=== PATIENT | female | born 1950 | race Caucasian/White ===

== ENCOUNTER 2024-07-07 07:50 | Emergency (ER) | payer MEDICARE, OTHER, SELFPAY ==
[2024-07-07 07:55] VITALS: BP 178/98
[2024-07-07 08:15] VITALS: BP 160/85
--- NOTE | 2024-07-07 08:36 | ED.GENMED ---
History of Present Illness
<ANGELITA Negro - Last Filed: 07/07/24 14:50>
General
Chief Complaint: Chest Pain
Source: patient
Exam Limitations: none
Time Seen by Provider: 07/07/24 08:02
Nursing documentation reviewed up to this point in time: agreed with
History of Present Illness
History of Present Illness:
Patient is a 73-year-old female with past medical history of breast cancer in 2015 with chemotherapy radiation and right mastectomy. Presents to the ER for evaluation of chest pain. Patient reports she woke up at 5:30 AM because of her dog but
then noticed she had pain in the center of her chest and has been there ever since. She does upper back pain. She does feel worse when she sits up. She denies any actual injury. She denies any recent cough cold fever chills. She has been having
some reflux lately but this does not feel like reflux. She denies any shortness of breath.
Past History
<ANGELITA Negro - Last Filed: 07/07/24 14:50>
Past History
ED Past Medical History: Cancer (Breast cancer and skin cancer) and Hypothyroidism
ED Past Surgical History: Gynecological, Orthopedic, Urological and Other
Social History
Tobacco: Non-smoker
Alcohol: None
Drug: None
Personal:
Living: with family
Employment: Employed
Family History
Family History: Hypertension
Review of Systems
<ANGELITA Negro - Last Filed: 07/07/24 14:50>
Review of Systems
Allergies reviewed?: Yes
All Other Systems: ROS reviewed and negative except as documented in HPI and ROS
Constitutional: Reports no symptoms; Denies fever, fatigue or chills
Respiratory: Denies trouble breathing
Cardiac: Reports chest pain; Denies diaphoresis, palpitations or syncope
ABD/GI: Reports no symptoms
: Reports no symptoms
Musculoskeletal: Reports back pain
Skin: Reports no symptoms
Neurological: Reports no symptoms
Psychiatric: Reports no symptoms
Phy Exam
<ANGELITA Negro - Last Filed: 07/07/24 14:50>
General Physical Exam
General Presentation: no apparent distress
General age: appears stated age
General Skin: warm and dry
General Habitus: elderly
General Mental: alert
General Hydration: appears well hydrated
Cardiovascular Exam
Cardiovascular Exam: regular rate/rhythm, no murmur and normal peripheral pulses
Pulmonary Exam
Pulmonary Exam: lungs clear and chest non tender
Neurological Exam
Neurological Exam: alert and oriented x3
Musculoskeletal Exam
Musculoskeletal Exam: full ROM
Skin Exam
Skin Exam: normal color and warm/dry
Psychiatric Exam
Psychiatric Exam: normal mood/affect
Scores
<ANGELITA Negro - Last Filed: 07/07/24 14:50>
Heart Score for Chest Pain Patients
STEMI patient?: Not applicable
Course
<ANGELITA Negro - Last Filed: 07/07/24 14:50>
Orders/Labs/Results
Orders:
Orders
07/07/24 07:58
Electrocardiogram (*1) Urgent
Reason for Study: Chest Pain
EKG- Treatment ONCE
07/07/24 08:29
CT Chest Pe Study Urgent
Comment:
Reason For Exam: cp radiating to back
Cardiac Monitoring- Treatment ONCE
IV Insert/Care/Rem.- Treatment PRN
07/07/24 08:33
Complete Blood Count/With Diff Urgent
07/07/24 09:21
Comprehensive Metabolic Panel Urgent
Troponin I Urgent
07/07/24 09:43
Ketorolac [Toradol] 15 mg IV NOW STA
07/07/24 11:01
Acetaminophen [Tylenol] 1,000 mg PO NOW STA
07/07/24 12:31
Troponin I Urgent
Abnormal Lab Results
07/07/24
09:21
Chloride 108 H mmol/L
(98-107)
BUN 26 H mg/dl
(7-17)
Glucose 110 H mg/dl
(70-99)
ALT 45 H U/L
(0-35)
07/07/24 08:33
07/07/24 09:21
Vital Signs
Initial and Last Documented VS:
Initial Vital Signs
Temp Pulse Resp BP Pulse Ox
97.8 F 77 18 178/98 98
07/07/24 07:55 07/07/24 07:55 07/07/24 07:55 07/07/24 07:55 07/07/24 07:55
Last Documented Vital Signs
Temp Pulse Resp BP Pulse Ox
97.8 F 77 16 156/78 98
07/07/24 07:55 07/07/24 13:10 07/07/24 13:10 07/07/24 13:28 07/07/24 13:10
Gospel Worker consulted with Physician
Gospel Worker consulted with physician?: Yes
Name of Physician Consulted: Juan
<Kash Martinez MD - Last Filed: 07/07/24 09:14>
Orders/Labs/Results
Orders:
Orders
07/07/24 07:58
Electrocardiogram (*1) Urgent
Reason for Study: Chest Pain
EKG- Treatment ONCE
07/07/24 08:29
CT Chest Pe Study Urgent
Comment:
Reason For Exam: cp radiating to back
Cardiac Monitoring- Treatment ONCE
IV Insert/Care/Rem.- Treatment PRN
07/07/24 08:33
Complete Blood Count/With Diff Urgent
07/07/24 09:21
Comprehensive Metabolic Panel Urgent
Troponin I Urgent
07/07/24 09:43
Ketorolac [Toradol] 15 mg IV NOW STA
07/07/24 11:01
Acetaminophen [Tylenol] 1,000 mg PO NOW STA
07/07/24 12:31
Troponin I Urgent
Abnormal Lab Results
07/07/24
09:21
Chloride 108 H mmol/L
(98-107)
BUN 26 H mg/dl
(7-17)
Glucose 110 H mg/dl
(70-99)
ALT 45 H U/L
(0-35)
07/07/24 08:33
07/07/24 09:21
Vital Signs
Initial and Last Documented VS:
Initial Vital Signs
Temp Pulse Resp BP Pulse Ox
97.8 F 77 18 178/98 98
07/07/24 07:55 07/07/24 07:55 07/07/24 07:55 07/07/24 07:55 07/07/24 07:55
Last Documented Vital Signs
Temp Pulse Resp BP Pulse Ox
97.8 F 77 16 156/78 98
07/07/24 07:55 07/07/24 13:10 07/07/24 13:10 07/07/24 13:28 07/07/24 13:10
<ANGELITA Negro - Last Filed: 07/07/24 14:50>
MDM/Problems Addressed
Differential Diagnosis Includes:
Not limited to musculoskeletal chest pain, ACS, less likely PE ,dissection musculoskeletal pain, reflux
MDM/Problems Addressed:
Patient is a 73-year-old female with history of breast cancer presents to the ER for evaluation of chest pain. Patient was already awake when she noticed midsternal chest pain and upper back pain. She denies any shortness of breath. She presents
awake alert no acute distress she denies any injury. Patient reports pain is worse with sitting up. Denies any recent fever chills illness. Lungs are clear she is nontachycardic nontachypneic nonhypoxic in no acute distress however with history
of breast cancer will order CTA to rule out PE, dissection. EKG normal sinus rhythm no acute findings. Patient eval by ED physician agrees with assessment plan.
Patient with [address] chest negative for PE/Dissection
On reexam patient is pain-free nontachycardic not hypoxic no acute distress will DC with outpatient follow-up by pcp and cardiology.
<ANGELITA Negro - Last Filed: 07/07/24 14:50>
*Radiology
Radiology exam reviewed: radiology read reviewed
*Pulse Oximetry
Patient hypoxic: no
*EKG
Interpreted by ED Provider?: Yes
Heart Rate: 74
Rate: normal
Rhythm: sinus
Ischemia: no ischemia
*Critical Care Note
Total Time (30-74mins, 75-104mins- exclusive of procedures): Not Applicable
ED Attending Note
<ANGELITA Negro - Last Filed: 07/07/24 14:50>
-
Portions of this chart may have been created with voice recognition software.� Occasional wrong word or��sound alike� substitutions may have occurred due to the inherent limitations of voice recognition software.
<Kash Martinez MD - Last Filed: 07/07/24 09:14>
ED Attending Note
Patient seen and examined by attending physician: Yes
I performed the substantive portion of visit, reviewed & personally made and approve the management plan that is documented in note by myself or MANSOOR.: Yes
ED Attending Note:
73-year-old female woke about 530 with vague mid to upper midsternal chest discomfort with some radiation to the upper back. Mildly worse with deep breathing. Also notes worse with sitting up. No shortness of breath nausea diaphoresis no
abdominal pain. No history of same. Past history of breast cancer. No cardiac history.
On exam patient is nontoxic in no distress. Warm and dry. Perfusing well. Lungs clear and equal. No CVA tenderness. No spinal tenderness. Heart regular rate and rhythm no murmur. Abdomen nontender. No liver or spleen palpable. No rebound or
guarding no mass or hernia. Remedies warm and dry. No cord or swelling.
Impression is mildly pleuritic mildly musculoskeletal like midsternal chest pain but does radiate to the back. Differential would include cardiac. Unlikely but EKG and troponins will be done x 2. Dissection and pulmonary emboli. She does have
remote history of pulmonary emboli. Feel CT scan is warranted. If all serious etiologies have been ruled out would consider musculoskeletal, reflux. Doubt gallbladder. She has no right upper quadrant tenderness. No abdominal tenderness.
Discharge Plan
Departure
Patient Disposition: Home (Routine Discharge)
Date of Disposition: 07/07/24
Time of Disposition: 13:37
Patient with high blood pressure during this ER visit?: Yes
Condition: Fair
Covid-19: Not Applicable
Discharge Problem:
Chest pain
Instructions: Chest Pain CBC Follow Up
Prescriptions:
No Action
levothyroxine 25 MCG tablet
25 mcg PO DAILY
letrozole 2.5 MG tablet
2.5 mg PO DAILY
Arthritis Pill
1 tab PO BID
Patient Comments:
pt does not know the name of medication
Turmeric
1 tab PO DAILY
oxycodone-acetaminophen [Percocet] 5-325 mg Tablet
1 tab PO Q6HPRN PRN (Reason: pain) Qty: 14 0RF
diclofenac potassium 50 mg tablet
50 mg PO BID PRN (Reason: pain) Qty: 14 0RF
amoxicillin-pot clavulanate 875-125 mg tablet
1 tab PO BID Qty: 14 0RF
albuterol sulfate 90 mcg/actuation HFA aerosol inhaler
2 inh inhalation Q8H PRN (Reason: shortness of breath or wheezing) Qty: 8.5 0RF
Referrals:
Barry Richey MD (Ellie) [Active] -
Yaakov Savage MD [Active] -
Activity Restrictions/Additional Instructions:
As discussed follow-up with your family doctor as well as cardiology in the next several days please give them a call to schedule an appointment return if any worsening of symptoms.
Your cardiac blood work and other labs were negative your CAT scan was negative. There were no concerning findings on your EKG.
Interventions
Interventions:
*Risk Screen - Suicide Last Done: 07/07/24 07:55
*General Assessment Last Done: 07/07/24 07:55
*Neglect/Abuse Screening Last Done: 07/07/24 07:55
ED- Fall Risk Assessment Last Done: 07/07/24 09:03
*ED COVID-19 Vaccine History Last Done: 07/07/24 08:46
*Nursing Disposition Last Done: 07/07/24 13:47
ED- Cardiac Assessment Last Done: 07/07/24 09:03
Discharge Date and Time
Discharge Date/Time: 07/07/24 13:47
Print Language: KHMER
[2024-07-07 08:46] VITALS: BP 160/85; BMI 30.2
[2024-07-07 08:58] LABS: % Basophils 0.9 % (0-2); % Eosinophils 2.2 % (0-6); % Immature Granulocytes 0.5 % (0-0.5); % Lymphocytes 26.9 % (20.5-51.1); % Monocytes 6.7 % (1.7-9.3); % Neutrophils 62.8 % (42.2-75.2); Absolute Basophils 0.1 10^3/uL (0-0.2); Absolute Eosinophils 0.1 10^3/uL (0-0.7); Absolute Lymphocytes 1.7 10^3/uL (1.2-3.4); Absolute Monocytes 0.4 10^3/uL (0.1-0.6); Hematocrit 41.8 % (37.0-47.0); Hemoglobin 14.3 g/dL (12.0-16.0); Mean Corp Hgb Conc. 34.2 g/dL (33.0-37.0); Mean Corpuscular Hgb 29.1 pg (27.0-31.0); Mean Platelet Volume 9.5 fL (7.4-10.4); Nucleated Red Blood Cells % 0 %; Platelet Count 315 10^3/uL (130-400); Red Blood Cell Count 4.92 10^6/uL (4.20-5.40); Red Cell Dist. Width 13.7 % (11.5-14.5); White Blood Cell Count 6.4 10^3/uL (4.8-10.8)
[2024-07-07 09:46] LABS: ALT (SGPT) 45 U/L (0-35); AST (SGOT) 33 U/L (14-36); Albumin 4.4 g/dl (3.5-5.0); Alkaline Phosphatase 88 U/L (38-126); Blood Urea Nitrogen 26 mg/dl (7-17); Calcium 10.2 mg/dl (8.4-10.2); Carbon Dioxide 24 mmol/L (22-30); Chloride 108 mmol/L (98-107); Estimated Creatinine Clearance 56 ml/min; Glucose 110 mg/dl (70-99); Potassium 4.6 mmol/L (3.5-5.1); Sodium 142 mmol/L (135-145); Total Bilirubin 0.5 mg/dl (0.2-1.3); Total Protein 6.7 g/dl (6.3-8.2); eGFR > 60.00
[2024-07-07 09:56] LABS: Troponin I < 0.012 ng/ml
[2024-07-07] MEDS: TORADOL 15 MG IV (10:19)
[2024-07-07 11:00] VITALS: BP 179/93
[2024-07-07] MEDS: TYLENOL 1000 MG PO (11:20)
[2024-07-07 12:00] VITALS: BP 183/82
[2024-07-07 13:07] LABS: Troponin I < 0.012 ng/ml
[2024-07-07 13:28] VITALS: BP 156/78
== END 2024-07-07 13:47 | disposition home or self-care (01) ==
LOC: EMR 07:50
PROVIDERS: Nurse Practitioner; EMERGENCY PHYSICIAN Emergency Medicine; FAMILY PHYSICIAN Family Medicine
DX: R07.89 Other chest pain (principal); M54.6 Pain in thoracic spine; K21.9 Gastro-esophageal reflux disease without esophagitis; E03.9 Hypothyroidism, unspecified; Z85.3 Personal history of malignant neoplasm of breast; Z86.711 Personal history of pulmonary embolism; Z92.3 Personal history of irradiation; Z92.21 Personal history of antineoplastic chemotherapy; Z85.828 Personal history of other malignant neoplasm of skin; Z90.11 Acquired absence of right breast and nipple; Z88.1 Allergy status to other antibiotic agents; Z88.5 Allergy status to narcotic agent; Z88.8 Allergy status to other drugs, medicaments and biological substances; Z91.048 Other nonmedicinal substance allergy status
CPT/HCPCS: 99285; 96374; 71275; 80053; 84484; 85025; 93005; Q9967

== ENCOUNTER → 2024-08-15 08:18 | Outpatient (REF) | payer MEDICARE, OTHER, SELFPAY | LOC: WDC 08:18 | PROVIDERS: ATTENDING PHYSICIAN Internal Medicine Hematology & Oncology; FAMILY PHYSICIAN Family Medicine | DX: Z12.31 Encounter for screening mammogram for malignant neoplasm of breast (principal) | CPT/HCPCS: 77063; 77067 ==

== ENCOUNTER → 2024-08-16 07:21 | Outpatient (REF) | payer MEDICARE, OTHER, SELFPAY | LOC: RAD 07:21 | PROVIDERS: ATTENDING PHYSICIAN Internal Medicine Gastroenterology; FAMILY PHYSICIAN Family Medicine | DX: R11.0 Nausea (principal) | CPT/HCPCS: 76700 ==

== ENCOUNTER 2025-01-03 17:00 | Emergency (ER) | payer SELFPAY ==
[2025-01-03 17:07] VITALS: BP 142/101
[2025-01-03 19:00] VITALS: BP 178/87
[2025-01-03 19:02] VITALS: BMI 31.3
[2025-01-03] MEDS: TYLENOL 1000 MG PO (20:04)
[2025-01-03 20:49] LABS: % Basophils 0.8 % (0-2); % Eosinophils 1.5 % (0-6); % Immature Granulocytes 0.5 % (0-0.5); % Lymphocytes 20.1 % (20.5-51.1); % Neutrophils 71.1 % (42.2-75.2); Absolute Basophils 0.1 10^3/uL (0-0.2); Absolute Eosinophils 0.2 10^3/uL (0-0.7); Absolute Immature Granulocytes 0.1 10^3/uL (0-0.05); Absolute Lymphocytes 2.4 10^3/uL (1.2-3.4); Absolute Monocytes 0.7 10^3/uL (0.1-0.6); Absolute Neutrophils 8.5 10^3/uL (1.4-6.5); Hematocrit 41.3 % (37.0-47.0); Hemoglobin 13.8 g/dL (12.0-16.0); Mean Corp Hgb Conc. 33.4 g/dL (33.0-37.0); Mean Corpuscular Hgb 29.1 pg (27.0-31.0); Mean Corpuscular Volume 87.1 fL (81.0-99.0); Nucleated Red Blood Cells % 0 %; Platelet Count 321 10^3/uL (130-400); Red Blood Cell Count 4.74 10^6/uL (4.20-5.40); White Blood Cell Count 11.9 10^3/uL (4.8-10.8)
[2025-01-03 21:05] LABS: ALT (SGPT) 34 U/L (0-35); AST (SGOT) 24 U/L (14-36); Alkaline Phosphatase 69 U/L (38-126); Blood Urea Nitrogen 21 mg/dl (7-17); Calcium 9.7 mg/dl (8.4-10.2); Carbon Dioxide 23 mmol/L (22-30); Chloride 109 mmol/L (98-107); Estimated Creatinine Clearance 63 ml/min; Glucose 98 mg/dl (70-99); Potassium 4.3 mmol/L (3.5-5.1); Sodium 140 mmol/L (135-145); Total Bilirubin 1.1 mg/dl (0.2-1.3); Total Protein 6.4 g/dl (6.3-8.2); eGFR > 60.00
[2025-01-03 21:44] VITALS: BP 158/82
[2025-01-03 21:46] VITALS: BP 158/82
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
[2025-01-03] MEDS: VALIUM 5 MG PO (22:17)
== END 2025-01-03 22:21 | disposition home or self-care (01) ==
LOC: EMR 17:00
PROVIDERS: EMERGENCY PHYSICIAN Emergency Medicine; FAMILY PHYSICIAN Family Medicine
DX: S16.1XXA Strain of muscle, fascia and tendon at neck level, initial encounter (principal); S30.1XXA Contusion of abdominal wall, initial encounter; S20.219A Contusion of unspecified front wall of thorax, initial encounter; V89.2XXA Person injured in unspecified motor-vehicle accident, traffic, initial encounter; Y92.410 Unspecified street and highway as the place of occurrence of the external cause; E03.9 Hypothyroidism, unspecified; Z82.49 Family history of ischemic heart disease and other diseases of the circulatory system; Z85.3 Personal history of malignant neoplasm of breast; Z85.828 Personal history of other malignant neoplasm of skin
CPT/HCPCS: 99284; 70450; 71046; 72125; 74177; 80053; 85025; 93005; Q9967

== ENCOUNTER → 2025-08-19 08:35 | Outpatient (REF) | payer MEDICARE, OTHER, SELFPAY | LOC: WDC 08:35 | PROVIDERS: ATTENDING PHYSICIAN Family Medicine | DX: Z12.31 Encounter for screening mammogram for malignant neoplasm of breast (principal); Z85.3 Personal history of malignant neoplasm of breast; C50.111 Malignant neoplasm of central portion of right female breast; E78.2 Mixed hyperlipidemia; M25.551 Pain in right hip; M25.552 Pain in left hip | CPT/HCPCS: 73523; 77063; 77067 ==

== ENCOUNTER 2025-08-30 04:04 | Emergency (ER) | payer MEDICARE, OTHER, SELFPAY ==
[2025-08-30] VITALS (7 sets, daily range): BP systolic 132–180; BP diastolic 70–104
[2025-08-30 04:46] LABS: Hematocrit 43.4 % (37.0-47.0); Hemoglobin 14.3 g/dL (12.0-16.0); Mean Corp Hgb Conc. 32.9 g/dL (33.0-37.0); Mean Corpuscular Volume 86.8 fL (81.0-99.0); Nucleated Red Blood Cells % 0 %; Platelet Count 290 10^3/uL (130-400); Red Cell Dist. Width 13.5 % (11.5-14.5)
[2025-08-30] MEDS: ZOFRAN 4 MG IV ×2 (04:55→06:22)
[2025-08-30] MEDS: MORPHINE SULFATE 4 MG IV ×3 (04:56→09:35)
[2025-08-30 05:24] LABS: Blood Urea Nitrogen 26 mg/dl (7-17); Calcium 9.5 mg/dl (8.4-10.2); Carbon Dioxide 20 mmol/L (22-30); Chloride 109 mmol/L (98-107); Glucose 137 mg/dl (70-99); Lipase 96 U/L (23-300); Sodium 138 mmol/L (135-145); eGFR 53.06
--- NOTE | 2025-08-30 06:09 | ED.GENMED ---
History of Present Illness
General
Chief Complaint: Abdominal Pain
Source: patient
Time Seen by Provider: 08/30/25 06:00
History of Present Illness
History of Present Illness:
This patient is a 74-year-old female presents emergency department complaints of pain that woke her up. She was feeling perfectly well and she went to bed and awoke at 3 AM, plaints of discomfort in the right upper quadrant radiating around to the
right back. She applied a heating pad and felt like she just could not get comfortable. She noted nausea without vomiting. She denies chest pain, dyspnea, fever, chills, lower abdominal pain, urinary symptoms, or other complaints.
Past History
Past History
ED Past Medical History: Cancer (Breast cancer and skin cancer) and Hypothyroidism
ED Past Surgical History: Gynecological, Orthopedic and Urological
Social History
Tobacco: Non-smoker
Alcohol: None
Drug: None
Personal:
Living: with family
Employment: Employed
Family History
Family History: Hypertension
Phy Exam
Physical Exam
Physical Exam:
GENERAL: Alert , in no apparent distress
EYE: pupils equal and reactive
NECK: Supple, no significant adenopathy.
ENT: o/p clr, mmm.
CARDIAC: Regular rate and rhythm .(R breast absent)
LUNGS: Clear breath sounds bilaterally, no acute respiratory distress, no wheezes/rales/rhonchi
ABDOMEN: Soft, mild ruq tenderness, no r/g, no cvat
NEUROLOGICAL: Alert and oriented, no focal neuro deficits
SKIN: Warm and dry, skin intact.
MUSCULOSKELETAL: No edema, well perfused.
PSYCH: Normal and appropriate interaction.
Course
Orders/Labs/Results
Orders:
Orders
08/30/25 04:26
US Abdomen Complete/Upper Urgent
Comment:
Reason For Exam: ruq pain, known gallstones
08/30/25 04:35
Basic Metabolic Panel Urgent
Comment: NO K
Complete Blood Count/With Diff Urgent
Lipase Urgent
08/30/25 04:52
Morphine Sulfate 4 mg .ROUTE .STK-MED ONE
Ondansetron Injectable [Zofran] 4 mg .ROUTE .STK-MED ONE
08/30/25 04:53
Ondansetron Injectable [Zofran] 4 mg IV NOW STA
08/30/25 04:56
Morphine Sulfate 4 mg IV NOW STA
08/30/25 06:00
Add On- LAB Urgent
Tests Added?: lft
08/30/25 06:08
Morphine Sulfate 4 mg IV NOW STA
Ondansetron Injectable [Zofran] 4 mg IV NOW STA
08/30/25 06:09
Electrocardiogram (*1) Urgent
Reason for Study: Abdominal Pain
EKG- Treatment ONCE
08/30/25 06:11
Iiptr-Lztm-Isdmxob Urgent
Potassium Urgent
08/30/25 09:00
Ketorolac [Toradol] 15 mg IV NOW STA
08/30/25 09:21
Urinalysis Reflex To Culture Urgent
Date Specimen was Collected: 08/30/25
Time Specimen was Collected: 09:14
Urine Microscopic Reflex Cult Urgent
Urine Culture Urgent
LAURA Source: U
Specimen Description:
Date Specimen was Collected: 08/30/25
Time Specimen was Collected: 09:14
08/30/25 09:24
Morphine Sulfate 4 mg IV NOW STA
Abnormal Lab Results
08/30/25 08/30/25
04:35 09:21
MCHC 32.9 L g/dL
(33.0-37.0)
Abs Immat Gran (auto) 0.1 H 10^3/uL
(0-0.05)
Immature Gran % 0.6 H %
(0-0.5)
Chloride 109 H mmol/L
(98-107)
Carbon Dioxide 20 L mmol/L
(22-30)
BUN 26 H mg/dl
(7-17)
Creatinine 1.1 H mg/dL
(0.6-1.0)
Glucose 137 H mg/dl
(70-99)
Leukocyte Esterase Rfl 2+ A
(Negative)
Urine RBC 3-6 A /HPF
(0-2)
Urine WBC (Reflex) 11-15 A /HPF
(0-5)
Urine Bacteria (Reflex) Moderate A
(Negative)
Urine Albumin (Reflex) 1+ A
(Neg - Trace)
08/30/25 04:35
08/30/25 06:11
Vital Signs
Initial and Last Documented VS:
Initial Vital Signs
Temp Pulse Resp BP Pulse Ox
97.8 F 73 26 180/104 99
08/30/25 04:10 08/30/25 04:10 08/30/25 04:10 08/30/25 04:10 08/30/25 04:10
Last Documented Vital Signs
Temp Pulse Resp BP Pulse Ox
97.8 F 66 14 157/88 99
08/30/25 04:10 08/30/25 09:36 08/30/25 09:36 08/30/25 09:36 08/30/25 06:11
*Pulse Oximetry
SaO2: 99
Oxygen Mode of Delivery: Room air
Update Note
Update Note:
Patient presents to the Emergency Department with Abdominal pain
Number and Complexity of Problems Addressed at the Encounter
� Chronic conditions affecting care:
� Acute Exacerbation and/or Progression of Chronic Illness:
� Differential Diagnosis includes:But not limited to cholelithiasis, cholecystitis, pyelonephritis, ACS, pancreatitis, etc. etc.
Amount and/or Complexity of Data to be Reviewed and Analyzed
� I performed an independent evaluation of and my interpretation is:
EKG:read by me, nsr, nl rate, no ischemia
CT:
Xrays:
Laboratory Studies: Generally unremarkable, mild renal insufficiency noted
Other: Vision report ultrasound cholelithiasis, no gallbladder wall thickening or pericholecystic fluid negative sonographic Tucker sign echogenic fatty liver normal 4.6 mm CBD incidental extrarenal pelvis left kidney and/or
mild central renal pelviectasis correlate with urinalysis as a precaution right kidney normal normal size spleen 10 cm� Final report Dr. Mary no acute intra-abdominal process identified, cholelithiasis. No sonographic findings highly suggestive
of acute cholecystitis. Increased hepatic echogenicity most likely representing moderate fatty infiltration. Bilateral renal cyst without cyst's.
� Review of other/old records reveals:
� Clinical information was obtained by an independent historian:
� Prescriptions/Medications Considered but not given:
� Further testing considered but not performed:
Risk of Complications and/or Morbidity or Mortality of Patient Management
� Social determinants of health affecting care:
� Discussion with other providers (PCP, Hospitalists, Consultants, etc):
� Escalation of care including admission/observation vs risk of discharge considered:1057AM Multiple reassessments, no new sxs, pain improving but not fully gone. D/w pt options to continue pain management/observation here, she
prefers to go home and if pain escalates/persists, fever, etc, will come back. at bedside and also expresses understanding. I did d/w dr Hamm, who agrees with just pain management given only 7 hrs since started and no signs to suggest infx.
Highly doubt other acute intraabd process such as appy, etc...pain very typical for stones, ttp RUQ, etc. Pt overall well appaering.
ED Attending Note
-
Portions of this chart may have been created with voice recognition software.� Occasional wrong word or��sound alike� substitutions may have occurred due to the inherent limitations of voice recognition software.
Discharge Plan
Departure
Patient Disposition: Home (Routine Discharge)
Date of Disposition: 08/30/25
Time of Disposition: 10:59
Patient with high blood pressure during this ER visit?: Yes
Discharge Problem:
Cholelithiasis
Instructions: BLOOD PRESSURE, Gallstones
Prescriptions:
No Action
levothyroxine 25 MCG tablet
25 mcg PO DAILY
letrozole 2.5 MG tablet
2.5 mg PO DAILY
Arthritis Pill
1 tab PO BID
Patient Comments:
pt does not know the name of medication
Turmeric
1 tab PO DAILY
oxycodone-acetaminophen [Percocet] 5-325 mg Tablet
1 tab PO Q6HPRN PRN (Reason: pain) Qty: 14 0RF
diclofenac potassium 50 mg tablet
50 mg PO BID PRN (Reason: pain) Qty: 14 0RF
amoxicillin-pot clavulanate 875-125 mg tablet
1 tab PO BID Qty: 14 0RF
albuterol sulfate 90 mcg/actuation HFA aerosol inhaler
2 inh inhalation Q8H PRN (Reason: shortness of breath or wheezing) Qty: 8.5 0RF
diazepam [Valium] 5 mg tablet
5 mg PO BID-TID PRN (Reason: muscle spasm) Qty: 12 0RF
Referrals:
Kash Thornotn MD [Family Provider, Family Practice]
Dillon Hamm MD [Active, Surgical] - Next open appointment
Activity Restrictions/Additional Instructions:
IF YOU DEVELOP PERSISTENT/NEW/WORSENING PAIN, ANY FEVER/CHILLS, VOMITING, CHEST PAIN, TROUBLE BREATHING OR OTHER WORRISOME SIGNS, GO TO THE ER IMMEDIATELY!
Interventions
Interventions:
*General Assessment Last Done: 08/30/25 08:05
*Neglect/Abuse Screening Last Done: 08/30/25 08:05
[facility] Fall Risk Assessment Tool Last Done: 08/30/25 04:04
*Risk Screen - Suicide (C-SSRS) Last Done: 08/30/25 04:10
ED-Dfvczs-Xdriwaotsz Assessment Last Done: 08/30/25 04:46
Discharge Date and Time
Print Language: GEORGIAN
[2025-08-30 06:54] LABS: ALT (SGPT) 32 U/L (0-35); AST (SGOT) 26 U/L (14-36); Albumin 4.2 g/dl (3.5-5.0); Alkaline Phosphatase 69 U/L (38-126); Potassium 4.5 mmol/L (3.5-5.1); Total Protein 6.6 g/dl (6.3-8.2)
[2025-08-30] MEDS: TORADOL 15 MG IV (09:34)
[2025-08-30 09:47] LABS: Urine Character Clear (Clear)
[2025-08-30 10:14] LABS: Urine Squamous Cell 21-25 /LPF (Few)
[2025-08-30] MEDS: ZOFRAN ODT (ORALLY DISINTEGRATING) 4 MG PO (11:51)
== END 2025-08-30 11:30 | disposition home or self-care (01) ==
LOC: EMR 04:04
PROVIDERS: Student in an Organized Health Care Education/Training Program; EMERGENCY PHYSICIAN Emergency Medicine; FAMILY PHYSICIAN Family Medicine
DX: K80.20 Calculus of gallbladder without cholecystitis without obstruction (principal); R11.0 Nausea; R03.0 Elevated blood-pressure reading, without diagnosis of hypertension; E03.9 Hypothyroidism, unspecified; Z85.3 Personal history of malignant neoplasm of breast; Z85.828 Personal history of other malignant neoplasm of skin; Z88.1 Allergy status to other antibiotic agents; Z88.5 Allergy status to narcotic agent; Z88.8 Allergy status to other drugs, medicaments and biological substances; Z91.048 Other nonmedicinal substance allergy status
CPT/HCPCS: 99284; 96374; 96375 ×2; 96376 ×3; 76700; 80048; 80076; 81003; 81015; 83690; 84132; 85025; 87086; 93005